=== PATIENT | female | born 1980 | race Native Hawaiian/Other Pacific Islander ===

== ENCOUNTER 2016-11-29 06:51 | Day surgery (SDC) | payer OTHER ==
[2016-11-15 10:34] VITALS: BMI 31.1
[2016-11-29] MEDS ORDERED: Propofol 10 mg/ml Inj (20 ML) ONE (07:35)
[2016-11-29] MEDS ORDERED: Midazolam 2 MG/2 ML VIAL ONE (07:35)
[2016-11-29] MEDS ORDERED: Rocuronium 10 mg/ml (5 ml) ONE (07:37)
[2016-11-29] MEDS: Bupivacaine/Epi 0.25%-1:200,000 10 ml PF inj IJ ONE ×2 (07:50→08:24)
[2016-11-29] MEDS: Lidocaine 1% Inj (20ml) ONE ×2 (07:51→08:24)
[2016-11-29] MEDS: cefOXitin IV 1 gm in Dextrose 1 GM/50 ML BAG IVPB ONE ×2 (07:51→08:15)
[2016-11-29] MEDS ORDERED: Neostigmine Methylsulfate 3mg/3ml Syringe IV ONE (09:21)
[2016-11-29] MEDS ORDERED: Lactated Ringer's 1,000 ML IV ONE (09:28)
[2016-11-29] MEDS ORDERED: HYDROmorphone 0.5 mg/0.5 ml ISec IVP PRN (09:42)
[2016-11-29] MEDS ORDERED: Morphine 4 MG/ML VIAL ONE (09:57)
--- NOTE | 2016-11-29 10:23 | PCM.SURG1 ---
Surgeon's Initial Post Op Note - Surgeon's Notes Surgeon: Dr Jones Sales Support Administrator: Dr Musa PGY2, Kait Sierra [employer] Type of Anesthesia: General Endo Pre-Operative Diagnosis: acute on chronic cholecystitis Operative Findings: hydrops Post-Operative Diagnosis: acute on chronic cholecystitis. hydrops. dense peritoneal adhesions Operation Performed: robotic cholecystectomy. lysis of adhesions Specimen/Specimens Removed: gallbladder Estimated Blood Loss: EBL {In ML}: 50 Blood Products Given: N/A Drains Used: No Drains Post-Op Condition: Good Date of Surgery/Procedure: 11/29/16 Time of Surgery/Procedure: 10:23
[2016-11-29] MEDS ORDERED: Oxycodone/Acetaminophen 5/325 mg Tab PO PRN (10:24)
[2016-11-29 11:19] VITALS: RESP 13
[2016-11-29 13:12] VITALS: TEMP 97.8
[2016-11-29 14:14] VITALS: O2SAT 98
[2016-11-29 14:15] VITALS: BP 120/67; PULSE 69
--- NOTE | 2016-11-29 22:06 | OP ---
PROCEDURE DATE: 11/29/2016 PREOPERATIVE DIAGNOSES: Chronic cholecystitis and cholelithiasis. POSTOPERATIVE DIAGNOSES: 1. Anigz-ki-lnkshbz cholecystitis. 2. Hydrops of the gallbladder. 3. Extensive post-infectious adhesions due to chronic cholecystitis. PROCEDURE DONE: 1. Robotic cholecystectomy. 2. Robotic extensive lysis of adhesions. SURGEON: Jonnie Jones MD PNEUMATIC JACK OPERATOR: OUMOU Figueredo. Kait was present from the beginning to the end of the procedure, he lped in the prepping and draping, placement of the port, docking and undocking of the robot and closu re of the wound. ANESTHESIA: General endotracheal tube anesthesia. ESTIMATED BLOOD LOSS: Around 10 mL. DRAINS: None. PATHOLOGY: Gallbladder with gallstone was sent for pathology. COMPLICATIONS: None. INTRAOPERATIVE FINDINGS: The patient had hydrops of the gallbladder with nmzha-oh-lvbzzhr cholecysti tis with extensive post-infectious adhesions. It took approximately 60-80 minutes extra for the rout ine procedure. INTRAOPERATIVE STEPS: This is a 36-year-old female who was diagnosed with chronic cholecystitis and cholelithiasis and the patient was consented for robotic cholecystectomy, possible open. Brought to the OR, placed supine on the operating table. After induction of the anesthesia, the abdomen was pre pped and draped in a usual sterile fashion. Supraumbilical transverse 1.5 cm incision was made. Aft er incising skin and subcutaneous tissue and the fascia, the robotic camera port was placed. Another three 8 mm ports were placed in upper abdomen and the robot was brought in and the camera arm 1 and arm 2 was docked and the gallbladder appeared to be extremely thick and edematous and first the gallb ladder was aspirated and the patient found to have a large stone in the gallbladder neck and the gall bladder infundibulum was retracted cranially, Calot's triangle dissection was done. Cystic duct and cystic artery was identified. Intraoperative Firefly was used to identify the anatomy and the cystic duct and cystic artery was clipped at 3 places and cut in between 2 clips nearby gallbladder and gal lbladder was dissected free from the gallbladder fossa, taken in the EndoCatch bag, taken out through the umbilical port site and sent to the table for the pathology. There was proper hemostasis in eac h and every part of the procedure. All the ports were taken out under vision and the robot was undoc ked. The umbilical port was closed in 2 layers, the fascia with 0 Vicryl interrupted sutures, the sk in with a 4-0 Monocryl. The patient tolerated the procedure well. Count of instruments and gauze wa s correct. There were no apparent complications. The patient was extubated in the OR and was sent t o the postanesthesia care in stable condition. Jonnie Jones MD cc: [id number] TT: 11/29/2016 22:06:15 dn
== END 2016-11-29 14:00 | disposition home or self-care (01) ==
LOC: C.SDS 06:51
PROVIDERS: ATTEND Surgery Surgical Critical Care
DX: K80.12 Calculus of gallbladder with acute and chronic cholecystitis without obstruction (principal); K82.8 Other specified diseases of gallbladder; K82.1 Hydrops of gallbladder
CPT/HCPCS: 47562; 88304; J0694; J1100; J2001; J2250; J2270; J2405; J2704; J2710; J3010; J7030; J7120